=== PATIENT | female | born 1945 | race African-American/Black ===

== ENCOUNTER → 2017-09-05 | Outpatient (CLI) | payer OTHER | END | disposition home or self-care (01) | LOC: US 08:42 | PROVIDERS: ATTEND Internal Medicine Nephrology | DX: R16.0 Hepatomegaly, not elsewhere classified (principal); Z90.49 Acquired absence of other specified parts of digestive tract | CPT/HCPCS: 76700 ==

== ENCOUNTER 2021-09-02 09:22 | Emergency (ER) | payer OTHER ==
[~2021-09-02] VITALS: Ht 165.1 cm; Wt 109.0 kg
[2021-09-02] MEDS ORDERED: ACETAMINOPHEN 325MG TABLET PO ONE (10:45)
[2021-09-02 11:11] LABS: BASOPHILS % 0.5 % (0.0-2.0); EOSINOPHILS % 0.7 % (0.0-5.0); HEMATOCRIT. 30.5 % (36.0-48.0); HEMOGLOBIN. 10.3 g/dL (12.0-16.0); MEAN CORPUSCULAR HEMOGLOBIN 28.9 pg (28.0-32.0); MEAN CORPUSCULAR VOLUME 85.5 fL (81.0-99.0); MEAN PLATELET VOLUME 7.5 fl (7.4-10.4); MONOCYTES % 12.4 % (2.0-8.0); NEUTROPHILS % 76.4 % (40.0-76.0); PLATELET 244 x1000/uL (130-400); RED BLOOD CELL COUNT 3.57 mill/uL (4.2-5.4); RED CELL DISTRIBUTION WIDTH 16.4 % (11.6-14.6)
[2021-09-02 11:21] LABS: CHLORIDE 93 mEq/L (98-107)
[2021-09-02 12:00] VITALS: BP 148/57
== END 2021-09-02 12:12 | disposition home or self-care (01) ==
LOC: ER 09:22
DX: R05.9 Cough, unspecified (principal); J40 Bronchitis, not specified as acute or chronic; R50.9 Fever, unspecified; I12.0 Hypertensive chronic kidney disease with stage 5 chronic kidney disease or end stage renal disease; E11.22 Type 2 diabetes mellitus with diabetic chronic kidney disease; E78.00 Pure hypercholesterolemia, unspecified; N18.6 End stage renal disease; Z99.2 Dependence on renal dialysis
CPT/HCPCS: 36415; 71046; 80053; 85025; 99284

== ENCOUNTER 2022-08-21 13:28 | Emergency (ER) | payer MEDICARE, OTHER ==
[~2022-08-21] VITALS: Ht 157.5 cm; Wt 91.0 kg
[~2022-08-21 13:28] MED LIST: AMLO10TA80 PO; ATOR10TA69 PO; BENA40TA91 PO; DOXA2TAB2 PO; FURO80TA3 PO; LOSA50TA41 PO; OMEP20CA14 PO; POTA-205 PO; SEVE800T8 PO
[2022-08-21 13:47] VITALS: BP 176/88
[2022-08-21] MEDS ORDERED: TOPUD MT (15:12)
== END 2022-08-21 16:35 | disposition home or self-care (01) ==
LOC: ER 14:06
DX: M25.562 Pain in left knee (principal); I48.91 Unspecified atrial fibrillation; I12.0 Hypertensive chronic kidney disease with stage 5 chronic kidney disease or end stage renal disease; E11.22 Type 2 diabetes mellitus with diabetic chronic kidney disease; N18.6 End stage renal disease; E78.00 Pure hypercholesterolemia, unspecified; Z90.10 Acquired absence of unspecified breast and nipple; Z99.2 Dependence on renal dialysis; Z88.1 Allergy status to other antibiotic agents
CPT/HCPCS: 73562; 99283